=== PATIENT | female | born 1985 | race Caucasian/White ===

== ENCOUNTER 2016-11-05 14:55 | Emergency (ER) | payer MEDICAID ==
[~2016-11-05] VITALS: Ht 175.3 cm; Wt 83.1 kg
[~2016-11-05 14:55] MED LIST: BUPR300T4 PO; CLON-364 PO; FLUO10CA13 PO; FLUO20CA19 PO; LORA-446 PO; MELA3TAB37 PO; OMEP40CA3 PO; QUET200T6 PO; RANI150C PO; RANI300T PO
[2016-11-05 15:00] VITALS: BP 129/82
[2016-11-05] MEDS ORDERED: PHENAZOPYRIDINE 200 MG TABLET ONE (15:22)
[2016-11-05] MEDS ORDERED: ONDANSETRON ODT 4 MG ONE (15:23)
[2016-11-05] MEDS ORDERED: PHENAZOPYRIDINE 200 MG TABLET PO ONE (15:30)
[2016-11-05] MEDS ORDERED: ONDANSETRON ODT 4 MG PO ONE (15:30)
[2016-11-05 15:31] LABS: HCG UR OBC PASS
[2016-11-05 15:44] LABS: BLOOD UREA NITROGEN 8 mg/dL (7-18)
== END 2016-11-05 16:26 | disposition home or self-care (01) ==
LOC: ED 16:20
DX: R30.0 Dysuria (principal); R11.0 Nausea; R10.2 Pelvic and perineal pain; K21.9 Gastro-esophageal reflux disease without esophagitis; I10 Essential (primary) hypertension; Z88.2 Allergy status to sulfonamides; Z88.8 Allergy status to other drugs, medicaments and biological substances; Z88.5 Allergy status to narcotic agent
CPT/HCPCS: 36415; 80048; 81003; 81025; 82040; 85025; 99284; Q0162

== ENCOUNTER 2017-02-25 16:02 | Emergency (ER) | payer MEDICAID ==
[~2017-02-25] VITALS: Ht 175.3 cm; Wt 83.5 kg
[~2017-02-25 16:02] MED LIST changes: -MELA3TAB37 PO; +MELA3TAB62 PO
[2017-02-25 17:09] LABS: HCG UR LOT HCG7030192
[2017-02-25 17:25] LABS: HCG UR OBC PASS
[2017-02-25 17:30] VITALS: BP 124/76
[2017-02-25] MEDS ORDERED: FLUCONAZOLE 100 MG TABLET PO ONE (18:30)
== END 2017-02-25 18:46 | disposition home or self-care (01) ==
LOC: ED 18:36
DX: B37.3 Candidiasis of vulva and vagina (principal); K21.9 Gastro-esophageal reflux disease without esophagitis; I10 Essential (primary) hypertension
CPT/HCPCS: 81001; 81025; 87086; 99284

== ENCOUNTER 2017-12-02 16:17 | Emergency (ER) | payer MEDICAID ==
[~2017-12-02] VITALS: Ht 154.9 cm; Wt 82.3 kg
[2017-12-02 17:36] LABS: BASOPHILS # (AUTO) 0.04 x10^3/uL (0-0.1); BASOPHILS % (AUTO) 1 % (0-1); EOSINOPHILS # (AUTO) 0.23 x10^3/uL (0-0.4); EOSINOPHILS % (AUTO) 3 % (1-7); LYMPHOCYTES # (AUTO) 1.96 x10^3/uL (1-3.4); LYMPHOCYTES % (AUTO) 24 % (22-44); MD NO; MEAN CORPUSCULAR HEMOGLOBIN 25.1 pg (27.0-34.8); MEAN CORPUSCULAR HGB CONC 32.8 g/dL (32.4-35.8); MEAN CORPUSCULAR VOLUME 76.7 fL (80-100); MEAN PLATELET VOLUME 6.4 fL (7.4-10.4); MONOCYTES # (AUTO) 0.41 x10^3/uL (0.2-0.8); MONOCYTES % (AUTO) 5 % (2-9); NEUTROPHILS # (AUTO) 5.55 x10^3/uL (1.8-6.8); NEUTROPHILS % (AUTO) 68 % (42-75); PLATELET COUNT 375 x10^3/uL (130-400); RED BLOOD COUNT 4.49 x10^6/uL (3.82-5.3); RED CELL DISTRIBUTION WIDTH 15.7 % (9.6-15.2)
[2017-12-02 17:41] LABS: ALBUMIN 3.7 g/dL (3.4-5.0); ANION GAP 6 mmol/L (5-15); CALCIUM 8.3 mg/dL (8.5-10.1); CHLORIDE 110 mmol/L (98-107); CREATININE 0.83 mg/dL (0.55-1.02)
[2017-12-02 17:44] VITALS: BP 124/86
[2017-12-02 17:58] LABS: CLUE CELLS NONE SEEN (NONE SEEN); WET PREP WBCS FEW (FEW)
[2017-12-02 18:04] LABS: HCG UR SG 1.014 (1.003-1.030); MICROSCOPIC AUTO
[2017-12-02 18:05] LABS: CULTURE INDICATED? YES
== END 2017-12-02 18:23 | disposition home or self-care (01) ==
LOC: ED 18:17
DX: R10.2 Pelvic and perineal pain (principal); L29.8 Other pruritus; I10 Essential (primary) hypertension; F31.9 Bipolar disorder, unspecified; R11.0 Nausea; Z90.89 Acquired absence of other organs
CPT/HCPCS: 36415; 76830; 80048; 81001; 81025; 82040; 85025; 87086; 87210; 87491; 87591; 87808; 99285

== ENCOUNTER 2018-07-18 13:19 | Emergency (ER) | payer MEDICAID ==
[~2018-07-18] VITALS: Ht 175.3 cm; Wt 82.7 kg
[~2018-07-18 13:19] MED LIST changes: -CLON-364 PO; +CLON0.5T11 PO; -QUET200T6 PO; +QUET200T7 PO
[2018-07-18 13:50] VITALS: BP 108/74
--- NOTE | 2018-07-18 14:05 | NUR ---
URINE COLLECTED AND SENT TO LAB. PATIENT AWAITING ROOM IN LOBBY.
[2018-07-18 14:26] LABS: BASOPHILS # (AUTO) 0.04 x10^3/uL (0-0.1); BASOPHILS % (AUTO) 1 % (0-1); EOSINOPHILS # (AUTO) 0.15 x10^3/uL (0-0.4); EOSINOPHILS % (AUTO) 3 % (1-7); LYMPHOCYTES # (AUTO) 1.78 x10^3/uL (1-3.4); LYMPHOCYTES % (AUTO) 31 % (22-44); MD NO; MEAN CORPUSCULAR HEMOGLOBIN 25.6 pg (27.0-34.8); MEAN CORPUSCULAR HGB CONC 32.6 g/dL (32.4-35.8); MEAN CORPUSCULAR VOLUME 78.7 fL (80-100); MEAN PLATELET VOLUME 6.5 fL (7.4-10.4); MONOCYTES # (AUTO) 0.35 x10^3/uL (0.2-0.8); MONOCYTES % (AUTO) 6 % (2-9); NEUTROPHILS # (AUTO) 3.47 x10^3/uL (1.8-6.8); NEUTROPHILS % (AUTO) 60 % (42-75); PLATELET COUNT 398 x10^3/uL (130-400); RED BLOOD COUNT 4.56 x10^6/uL (3.82-5.3); RED CELL DISTRIBUTION WIDTH 16.8 % (9.6-15.2)
[2018-07-18 14:35] LABS: ALBUMIN 3.9 g/dL (3.4-5.0); ANION GAP 5 mmol/L (5-15); CALCIUM 8.7 mg/dL (8.5-10.1); CHLORIDE 111 mmol/L (98-107); CREATININE 0.86 mg/dL (0.55-1.02)
[2018-07-18 14:42] LABS: MICROSCOPIC NOT IND
[2018-07-18 14:45] LABS: CULTURE INDICATED? NO
--- NOTE | 2018-07-18 15:23 | NUR ---
NOTIFIED BY REGISTRATION THAT PT SIGNED REQUEST FOR DC FROM TRIAGE [facility]M.
== END 2018-07-18 15:27 | disposition left against medical advice (07) ==
LOC: ED 15:06
DX: N76.0 Acute vaginitis (principal); R14.0 Abdominal distension (gaseous)
CPT/HCPCS: 36415; 80048; 81003; 82040; 84703; 85025; 99283

== ENCOUNTER 2019-04-05 15:12 | Emergency (ER) | payer MEDICAID ==
[~2019-04-05] VITALS: Ht 175.3 cm; Wt 77.9 kg
[2019-04-05 15:22] VITALS: BP 123/79
[2019-04-05] MEDS ORDERED: MAALOX/HYOSCYAMINE/LIDOCAINE 45 ML BTL ONE (15:57)
[2019-04-05] MEDS ORDERED: PANTOPRAZOLE 20MG TABLET ONE (15:57)
[2019-04-05] MEDS ORDERED: PANTOPROZOLE 40MG TABLET PO ONE (16:00)
[2019-04-05] MEDS ORDERED: MAALOX/HYOSCYAMINE/LIDOCAINE 45 ML BTL PO ONE (16:00)
[2019-04-05 16:03] LABS: BASOPHILS % (AUTO) 1 % (0-1); EOSINOPHILS % (AUTO) 2 % (1-7); LYMPHOCYTES # (AUTO) 2.12 x10^3/uL (1-3.4); LYMPHOCYTES % (AUTO) 21 % (22-44); MD NO; MEAN CORPUSCULAR HGB CONC 31.6 g/dL (32.4-35.8); MEAN CORPUSCULAR VOLUME 82.3 fL (80-100); MEAN PLATELET VOLUME 6.2 fL (7.4-10.4); MONOCYTES # (AUTO) 0.38 x10^3/uL (0.2-0.8); MONOCYTES % (AUTO) 4 % (2-9); NEUTROPHILS # (AUTO) 7.22 x10^3/uL (1.8-6.8); NEUTROPHILS % (AUTO) 72 % (42-75); PLATELET COUNT 330 x10^3/uL (130-400); RED BLOOD COUNT 4.34 x10^6/uL (3.82-5.3); RED CELL DISTRIBUTION WIDTH 15.8 % (9.6-15.2)
[2019-04-05 16:12] LABS: ALANINE AMINOTRANSFERASE 18 U/L (12-78); ALBUMIN 3.6 g/dL (3.4-5.0); ANION GAP 4 mmol/L (5-15); CALCIUM 8.9 mg/dL (8.5-10.1); CHLORIDE 109 mmol/L (98-107); CREATININE 0.84 mg/dL (0.55-1.02)
[2019-04-05 16:14] LABS: ALKALINE PHOSPHATASE 36 U/L (45-117); BILIRUBIN,TOTAL 0.2 mg/dL (0.2-1.0); TOTAL PROTEIN 7.5 g/dL (6.4-8.2)
--- NOTE | 2019-04-05 16:19 | NUR ---
PT HERE WITH C/O HEARTBURN. HX OF GERD WITH SUCCESSFUL TX WITH PRILOSEC AND ZANTAC. PT STATES SINCE ZANTAC HAS BEEN TAKEN OFF THE SHELF SHE HAS HAD REOCCURRING EPISODES OF HEARTBURN.
== END 2019-04-05 16:57 | disposition home or self-care (01) ==
LOC: ED 15:47
DX: K21.0 Gastro-esophageal reflux disease with esophagitis (principal); I10 Essential (primary) hypertension; F31.9 Bipolar disorder, unspecified; F41.1 Generalized anxiety disorder; Z90.49 Acquired absence of other specified parts of digestive tract; Z88.2 Allergy status to sulfonamides; Z88.8 Allergy status to other drugs, medicaments and biological substances; Z88.5 Allergy status to narcotic agent
CPT/HCPCS: 36415; 80053; 83690; 85025; 99283

== ENCOUNTER 2019-06-16 16:07 | Emergency (ER) | payer MEDICAID ==
[~2019-06-16] VITALS: Ht 175.3 cm; Wt 73.6 kg
[~2019-06-16 16:07] MED LIST changes: -BUPR300T4 PO; +BUPR300T94 PO; +CLON-364 PO; -CLON0.5T11 PO
[2019-06-16] MEDS ORDERED: ONDANSETRON ODT 4 MG ONE (16:29)
--- NOTE | 2019-06-16 16:44 | NUR ---
medicated per emar
[2019-06-16] MEDS ORDERED: LORazepam 1MG TABLET PO ONE (17:00)
[2019-06-16] MEDS ORDERED: ONDANSETRON ODT 4 MG PO ONE (17:00)
[2019-06-16] MEDS ORDERED: MAALOX/HYOSCYAMINE/LIDOCAINE 45 ML BTL ONE (17:21)
[2019-06-16 17:25] VITALS: BP 115/66
--- NOTE | 2019-06-16 17:26 | NUR ---
ANXIETY IMPROVED TO 4/10 REMAINS WITH EPIGASTRIC PAIN (MEDICATED PER EMAR)
[2019-06-16] MEDS ORDERED: MAALOX/HYOSCYAMINE/LIDOCAINE 45 ML BTL PO ONE (17:30)
--- NOTE | 2019-06-16 17:44 | NUR ---
epigastric pain improved to 2/10
== END 2019-06-16 17:48 | disposition home or self-care (01) ==
LOC: ED 17:30
DX: F41.0 Panic disorder [episodic paroxysmal anxiety] (principal); K21.9 Gastro-esophageal reflux disease without esophagitis; R11.0 Nausea; F31.9 Bipolar disorder, unspecified; I10 Essential (primary) hypertension; Z90.89 Acquired absence of other organs
CPT/HCPCS: 93005; 99284; Q0162

== ENCOUNTER 2019-07-19 17:51 | Emergency (ER) | payer MEDICAID ==
[~2019-07-19] VITALS: Ht 175.3 cm; Wt 71.6 kg
[2019-07-19 17:59] VITALS: BP 127/74
== END 2019-07-19 19:26 | disposition home or self-care (01) ==
LOC: ED 18:51
DX: S09.90XA Unspecified injury of head, initial encounter (principal); I10 Essential (primary) hypertension; K21.9 Gastro-esophageal reflux disease without esophagitis; Z90.89 Acquired absence of other organs; X58.XXXA Exposure to other specified factors, initial encounter; Y93.89 Activity, other specified; Y92.89 Other specified places as the place of occurrence of the external cause; Y99.8 Other external cause status
CPT/HCPCS: 99281

== ENCOUNTER 2019-08-03 09:45 | Emergency (ER) | payer MEDICAID ==
[~2019-08-03] VITALS: Ht 175.3 cm; Wt 71.7 kg
[2019-08-03 09:54] VITALS: BP 127/85
--- NOTE | 2019-08-03 10:12 | NUR ---
to ed from home. bf being seen in other room for std sx. pt denies hx stds, c/o brown discharge and vag pain x1 week. no fever/flank pain. call andrade in reach. ua obtained. on gyno stretcher. waiting for provider. tearful. as
[2019-08-03] MEDS ORDERED: CEFTRIAXONE 250 MG IM ONE (11:00)
[2019-08-03] MEDS ORDERED: CEFTRIAXONE 250 MG ONE (11:00)
[2019-08-03] MEDS ORDERED: AZITHROMYCIN 500 MG TABLET ONE (11:00)
[2019-08-03] MEDS ORDERED: AZITHROMYCIN 500 MG TABLET PO ONE (11:00)
--- NOTE | 2019-08-03 11:12 | NUR ---
chaperoned pelvic by dr stanton. swabs sent. meds per mar. education provided. nad. as
[2019-08-03 11:17] LABS: CLUE CELLS NONE SEEN (NONE SEEN); WET PREP WBCS MODERATE (FEW)
== END 2019-08-03 12:15 | disposition home or self-care (01) ==
LOC: ED 10:27
DX: A56.09 Other chlamydial infection of lower genitourinary tract (principal); A54.03 Gonococcal cervicitis, unspecified; I10 Essential (primary) hypertension; K21.9 Gastro-esophageal reflux disease without esophagitis; M79.7 Fibromyalgia; Z90.49 Acquired absence of other specified parts of digestive tract; Z88.2 Allergy status to sulfonamides; Z88.5 Allergy status to narcotic agent; Z88.8 Allergy status to other drugs, medicaments and biological substances
CPT/HCPCS: 87210; 87491; 87591; 87808; 96372; 99283; J0696

== ENCOUNTER 2019-10-24 12:00 | Emergency (ER) | payer MEDICAID ==
[~2019-10-24] VITALS: Ht 175.3 cm; Wt 71.5 kg
[2019-10-24 12:01] VITALS: BP 117/81
--- NOTE | 2019-10-24 12:42 | NUR ---
PT UPSET IN RM [place], STATES "I CANT TAKE THE ANXIETY AND PANIC ANYMORE, THE DRUG COMPANIES CANT GET THERE STUFF TOGETHER AND THE TRAFFICKERS ARE AFTER MY KIDS, IM AFFRAID AND SCARED ALL THE TIME" PT DENIES SI/HI. HX DEPRESSION
[2019-10-24] MEDS ORDERED: LORazepam 1MG TABLET ONE (12:44)
--- NOTE | 2019-10-24 12:51 | NUR ---
BELEN KANG IN TO EVAL PT AT THIS TIME
[2019-10-24] MEDS ORDERED: LORazepam 1MG TABLET PO ONE (13:00)
[2019-10-24 13:58] LABS: ALANINE AMINOTRANSFERASE 15 U/L (12-78); ALBUMIN 3.8 g/dL (3.4-5.0); ANION GAP 6 mmol/L (5-15); CALCIUM 8.6 mg/dL (8.5-10.1); CHLORIDE 107 mmol/L (98-107); CREATININE 0.97 mg/dL (0.55-1.02)
[2019-10-24 14:02] LABS: ALKALINE PHOSPHATASE 37 U/L (45-117); BILIRUBIN,TOTAL 0.5 mg/dL (0.2-1.0)
[2019-10-24 14:04] LABS: SALICYLATE LEVEL < 1.7 mg/dL (2.8-20.0)
--- NOTE | 2019-10-24 14:05 | NUR ---
BREAK RN. PER PSYCH THEATER MANAGER, PT TO BE ER D/C. WILL FOLLOW ORDERS.
[2019-10-24 14:10] LABS: BASOPHILS # (AUTO) 0.03 x10^3/uL (0-0.1); BASOPHILS % (AUTO) 0 % (0-1); EOSINOPHILS # (AUTO) 0.21 x10^3/uL (0-0.4); EOSINOPHILS % (AUTO) 2 % (1-7); LYMPHOCYTES # (AUTO) 1.42 x10^3/uL (1-3.4); LYMPHOCYTES % (AUTO) 15 % (22-44); MD NO; MEAN CORPUSCULAR HEMOGLOBIN 26.2 pg (27.0-34.8); MEAN CORPUSCULAR HGB CONC 32.2 g/dL (32.4-35.8); MEAN CORPUSCULAR VOLUME 81.6 fL (80-100); MONOCYTES # (AUTO) 0.55 x10^3/uL (0.2-0.8); MONOCYTES % (AUTO) 6 % (2-9); NEUTROPHILS # (AUTO) 7.55 x10^3/uL (1.8-6.8); NEUTROPHILS % (AUTO) 77 % (42-75); PLATELET COUNT 334 x10^3/uL (130-400); RED BLOOD COUNT 4.44 x10^6/uL (3.82-5.3); RED CELL DISTRIBUTION WIDTH 16.3 % (9.6-15.2)
== END 2019-10-24 15:16 | disposition home or self-care (01) ==
LOC: ED 13:27
DX: F41.0 Panic disorder [episodic paroxysmal anxiety] (principal); I10 Essential (primary) hypertension; K21.9 Gastro-esophageal reflux disease without esophagitis; Z90.49 Acquired absence of other specified parts of digestive tract
CPT/HCPCS: 36415; 80053; 80307; 84443; 84703; 85025; 99283

== ENCOUNTER 2019-12-12 13:21 | Emergency (ER) | payer MEDICAID ==
[~2019-12-12] VITALS: Ht 175.3 cm; Wt 71.4 kg
--- NOTE | 2019-12-12 13:41 | NUR ---
PT CAME IN CO OF "[employer]". PT STATES SHE HAS A HX OF ULCERS AND WAS SCOPED HERE. PT STATES [employer]K USUALLY HELPS BUT SHE HAS RAN OUT. SYMPTOMS STARTED LAST NIGHT. PT DENIES VOMITTING OR BLOODY STOOL. PT IS RESTING IN GURNEY CONNECTED TO MONITORING EQUIPMENT.
[2019-12-12] MEDS ORDERED: MAALOX/HYOSCYAMINE/LIDOCAINE 45 ML BTL ONE (13:43)
[2019-12-12 13:57] LABS: BASOPHILS # (AUTO) 0.01 x10^3/uL (0-0.1); BASOPHILS % (AUTO) 0 % (0-1); EOSINOPHILS # (AUTO) 0.22 x10^3/uL (0-0.4); EOSINOPHILS % (AUTO) 3 % (1-7); LYMPHOCYTES # (AUTO) 1.68 x10^3/uL (1-3.4); LYMPHOCYTES % (AUTO) 21 % (22-44); MD NO; MEAN CORPUSCULAR HEMOGLOBIN 26.4 pg (27.0-34.8); MEAN CORPUSCULAR HGB CONC 31.8 g/dL (32.4-35.8); MEAN CORPUSCULAR VOLUME 83.2 fL (80-100); MEAN PLATELET VOLUME 6.9 fL (7.4-10.4); MONOCYTES # (AUTO) 0.39 x10^3/uL (0.2-0.8); MONOCYTES % (AUTO) 5 % (2-9); NEUTROPHILS # (AUTO) 5.61 x10^3/uL (1.8-6.8); NEUTROPHILS % (AUTO) 71 % (42-75); PLATELET COUNT 333 x10^3/uL (130-400); RED BLOOD COUNT 4.35 x10^6/uL (3.82-5.3)
[2019-12-12] MEDS ORDERED: MAALOX/HYOSCYAMINE/LIDOCAINE 45 ML BTL PO ONE (14:00)
[2019-12-12 14:07] LABS: ANION GAP 7 mmol/L (5-15); CALCIUM 8.3 mg/dL (8.5-10.1); CHLORIDE 105 mmol/L (98-107); CREATININE 0.82 mg/dL (0.55-1.02)
[2019-12-12 14:08] LABS: ALANINE AMINOTRANSFERASE 17 U/L (12-78); ALBUMIN 3.6 g/dL (3.4-5.0)
[2019-12-12 14:12] LABS: ALKALINE PHOSPHATASE 31 U/L (45-117); BILIRUBIN,TOTAL 0.3 mg/dL (0.2-1.0); TOTAL PROTEIN 7.7 g/dL (6.4-8.2)
[2019-12-12 14:22] LABS: MICROSCOPIC AUTO
--- NOTE | 2019-12-12 14:29 | NUR ---
PT REPORTS PAIN IMPROVEMENT AFTER GI COCKTAIL
[2019-12-12 14:56] VITALS: BP 114/68
--- NOTE | 2019-12-12 15:07 | NUR ---
PT RESTING IN [facility]. VSS. NAD. UP FOR RECHECK
== END 2019-12-12 15:23 | disposition home or self-care (01) ==
LOC: ED 13:51
DX: K21.9 Gastro-esophageal reflux disease without esophagitis (principal); K25.7 Chronic gastric ulcer without hemorrhage or perforation; R10.13 Epigastric pain; I10 Essential (primary) hypertension
CPT/HCPCS: 36415; 80053; 81001; 83690; 84703; 85025; 87086; 99283

== ENCOUNTER 2019-12-31 12:08 | Emergency (ER) | payer MEDICAID ==
[~2019-12-31] VITALS: Ht 175.3 cm; Wt 69.9 kg
--- NOTE | 2019-12-31 12:29 | NUR ---
BREAK RN: PT AMBULATORY TO ROOM 14 W/ C/O LOWER PELVIC ABD PAIN AND BURNING TO VAGINA THAT STARTED 4 DAYS AGO. PT STATES SHE ALSO HAS NAUSEA NO EMESIS. PT THINKS SHE EITHER HAS UTI OR YEAST INFECTION. PT RESTING ON GURNEY. NADN. VSS. MONITORS APPLIED. WARM BLANKET PROVIDED.
[2019-12-31 12:47] LABS: MICROSCOPIC NOT IND
--- NOTE | 2019-12-31 13:04 | NUR ---
REPORT GIVEN TO TIMI TRAYLOR
[2019-12-31 13:31] LABS: CLUE CELLS NONE SEEN (NONE SEEN); WET PREP WBCS FEW (FEW)
[2019-12-31] MEDS ORDERED: AZITHROMYCIN 500 MG TABLET PO ONE (14:00)
[2019-12-31] MEDS ORDERED: CEFTRIAXONE 250 MG IM ONE (14:00)
[2019-12-31] MEDS ORDERED: CEFTRIAXONE 250 MG ONE (14:03)
[2019-12-31] MEDS ORDERED: AZITHROMYCIN 250 MG TABLET ONE (14:04)
[2019-12-31 14:20] VITALS: BP 103/54
== END 2019-12-31 14:21 | disposition home or self-care (01) ==
LOC: ED 13:13
DX: R10.30 Lower abdominal pain, unspecified (principal); I10 Essential (primary) hypertension; K21.9 Gastro-esophageal reflux disease without esophagitis; Z90.49 Acquired absence of other specified parts of digestive tract
CPT/HCPCS: 36415; 81003; 84703; 87210; 87491; 87591; 87808; 96372; 99284; J0696

== ENCOUNTER 2020-01-05 13:54 | Emergency (ER) | payer MEDICAID ==
[~2020-01-05] VITALS: Ht 175.3 cm; Wt 69.9 kg
--- NOTE | 2020-01-05 14:19 | NUR ---
PT C/O "MY GERD IS REALLY BAD AND I HAVE REALLY BAD ANXIETY". VSS. CALL LIGHT PLACED WITHIN REACH. FAMILY MEMBER AT BEDSIDE.
[2020-01-05] MEDS ORDERED: LORazepam 1MG TABLET PO ONE (14:30)
[2020-01-05] MEDS ORDERED: ONDANSETRON ODT 4 MG PO ONE (14:30)
[2020-01-05] MEDS ORDERED: ONDANSETRON ODT 4 MG ONE (14:35)
[2020-01-05] MEDS ORDERED: LORazepam 1MG TABLET ONE (14:35)
[2020-01-05 14:46] LABS: BASOPHILS # (AUTO) 0.01 x10^3/uL (0-0.1); BASOPHILS % (AUTO) 0 % (0-1); EOSINOPHILS # (AUTO) 0.13 x10^3/uL (0-0.4); EOSINOPHILS % (AUTO) 2 % (1-7); LYMPHOCYTES # (AUTO) 1.66 x10^3/uL (1-3.4); LYMPHOCYTES % (AUTO) 22 % (22-44); MD NO; MEAN CORPUSCULAR HEMOGLOBIN 27.4 pg (27.0-34.8); MEAN CORPUSCULAR HGB CONC 32.5 g/dL (32.4-35.8); MEAN CORPUSCULAR VOLUME 84.2 fL (80-100); MONOCYTES # (AUTO) 0.25 x10^3/uL (0.2-0.8); MONOCYTES % (AUTO) 3 % (2-9); NEUTROPHILS # (AUTO) 5.54 x10^3/uL (1.8-6.8); NEUTROPHILS % (AUTO) 73 % (42-75); PLATELET COUNT 312 x10^3/uL (130-400); RED BLOOD COUNT 4.26 x10^6/uL (3.82-5.3); RED CELL DISTRIBUTION WIDTH 16.1 % (9.6-15.2)
--- NOTE | 2020-01-05 14:51 | NUR ---
URINE SAMPLE COLLECTED.
[2020-01-05 14:53] LABS: ALANINE AMINOTRANSFERASE 14 U/L (12-78); ANION GAP 6 mmol/L (5-15); CHLORIDE 108 mmol/L (98-107)
[2020-01-05 14:59] LABS: ALKALINE PHOSPHATASE 29 U/L (45-117); BILIRUBIN,TOTAL 0.3 mg/dL (0.2-1.0); CREATININE 0.84 mg/dL (0.55-1.02); TOTAL PROTEIN 7.7 g/dL (6.4-8.2)
[2020-01-05 15:01] LABS: MICROSCOPIC NOT IND
[2020-01-05 15:53] VITALS: BP 105/61
--- NOTE | 2020-01-05 16:24 | NUR ---
Patient given discharge instructions and they have confirmed that they understand the instructions. Patient ambulatory with steady gait.
== END 2020-01-05 16:25 | disposition home or self-care (01) ==
LOC: ED 15:30
DX: K21.9 Gastro-esophageal reflux disease without esophagitis (principal); R11.0 Nausea; R10.13 Epigastric pain; F41.9 Anxiety disorder, unspecified; I10 Essential (primary) hypertension
CPT/HCPCS: 36415; 80053; 81003; 83690; 84703; 85025; 99283; Q0162